=== PATIENT | female | born 1970 | race African-American/Black ===

== ENCOUNTER 2017-05-13 19:23 | Observation (INO) | payer SELFPAY ==
[2017-05-13 20:04] LABS: #Basophils 0.1 thou/uL (0.0-0.2); #Eosinphils 0.1 thou/uL (0.0-0.7); #Lymphocytes 1.9 thou/uL (1.20-3.40); #Monocytes 0.4 thou/uL (0.11-0.59); %Basophils 0.9 % (0.0-1.0); %Eosinophils 1.6 % (0.0-10.0); %Lymphocytes 29.6 % (21.0-51.0); %Monocytes 6.2 % (0.0-10.0); %Neutrophils 61.7 % (42.0-75.0); Hemoglobin 6.6 g/dL (12.0-16.0); Mean Corpuscular HGB CONC 27.9 g/dL (32.0-36.0); Mean Corpuscular Hemoglobin 19.4 pg (27.0-31.0); Mean Corpuscular Volume 69.6 fl (81.0-99.0); Mean Platelet Volume 11.7 fL (7.4-10.4); Platelet Count 256 thou/uL (130-400); Red Blood Cell (RBC) Count 3.38 mill/uL (4.20-5.40); White Blood Cell (WBC) Count 6.5 thou/uL (4.8-10.8)
[2017-05-13 20:20] LABS: Anisocytosis MODERATE=16-30 cells (100X) (0-5/hpf); Hypochromia SLIGHT = 6-15 cells (100X) (0-5/hpf); Large Platelets SLIGHT; MDiff Complete? YES; Microcytosis MODERATE=15-30 cells (100X) (0-5/hpf); Ovalocytes SLIGHT = 2-5 cells (100X) (0-1/hpf); PLT Morphology Comment Appears Adequate; Polychromasia SLIGHT = 2-3 cells (100X) (0-2/hpf); Target Cells SLIGHT = 2-5 cells (100X) (0-1/hpf)
[2017-05-13 20:24] LABS: ALT (SGPT) 11 U/L (8-55); AST (SGOT) 16 U/L (5-34); Albumin 3.6 g/dL (3.5-5.0); Alkaline Phosphatase 80 U/L (40-150); Anion Gap 15 mmol/L (10-20); BUN (Urea Nitrogen) 12 mg/dL (7.0-18.7); Bilirubin, Total Less than 0.2 mg/dL (0.2-1.2); Calc. Creatinine Clearance 0 mL/min (70-130); Calcium 9.1 mg/dL (7.8-10.44); Carbon Dioxide 21 mmol/L (22-29); Chloride 106 mmol/L (98-107); Estimated GFR-MDRD 62; Glucose 117 mg/dL (70-105); Potassium 3.8 mmol/L (3.5-5.1); Protein, Total 7.6 g/dL (6.0-8.3); Sodium 138 mmol/L (136-145)
[2017-05-13 20:48] LABS: Bilirubin Negative (Negative); Blood, Urine Large (Negative); Clarity CLEAR (Clear); Glucose, Urine (Dipstick) Negative (Negative); Leukocyte Small (Negative); Nitrite Negative (Negative); Protein, Urine (Dipstick) Negative (Neg-Trace); Specific Gravity, Urine 1.016 (1.002-1.036); Urobilinogen 0.2 mg/dL (0.2-1.0); pH, Urine 6.5 (5.0-9.0)
[2017-05-13 20:49] LABS: Bacteria/HPF None Seen HPF (None Seen); Hyaline Casts/LPF 0-3 HYALINE CAST LPF (0-3 Hyaline); Pregnancy Test - Urine (BHCG) Negative (Negative); Pregu Control Background? CLEAR/WHITE (CLR/WHITE); Pregu Control Bar Appear? YES (CONTROL BAR); RBC/HPF GREATER THAN 50-TNTC HPF (0-3); Specific Gravity 1.016 (1.002-1.036); Squamous Epithelial 0-3 HPF (0-3)
[2017-05-13] MEDS ORDERED: Ondansetron HCl/PF 4 MG/2 ML Vial IVP PRN (22:48)
[2017-05-13] MEDS ORDERED: Ondansetron ODT 4 MG TAB SL PRN (22:48)
[2017-05-13] MEDS ORDERED: Acetaminophen 325 MG TAB PO PRN ×2 (22:48→23:11)
[2017-05-13 23:07] LABS: Iron 13 ug/dL (50-170); Iron Binding Capacity, Total 424 mcg/dL (265-497)
[2017-05-13] MEDS ORDERED: diphenhydrAMINE 50 MG/ML VIAL IVP SCH (23:11)
[2017-05-13] MEDS ORDERED: Ondansetron ODT 4 MG TAB PO PRN (23:11)
[2017-05-13 23:30] VITALS: BMI 39.1
--- NOTE | 2017-05-14 03:30 | HP-2 ---
CODE STATUS: FULL. PRIMARY CARE PHYSICIAN: Wilfredo gomez. ATTENDING: Humble Galicia M.D. RESIDENT: Chandra Stauffer MD CHIEF COMPLAINT: Weakness and dizziness. HISTORY OF PRESENT ILLNESS: A 47-year-old female, who presents with a 2 week history of feeling dizz y and lightheaded. She states she went to [facility] roughly one month ago and was found to have hemoglobin of 6. At that time, she was advised to seek emergency medical care, but denied fu rther treatment at that time. States she has been taking [id number] iron tablets for this. Ov er the last couple weeks, she has noticed that she can walk as far and she cannot tolerate walking up stairs any longer. She denies any GI bleeding or recent illness. She does state that she has had lo ngstanding heavy menstrual cycles, where she uses roughly 4 pads per day and they can last as long as 2 weeks at the time. She has no other complaints at this time. PAST MEDICAL HISTORY: Anemia and depression. PAST SURGICAL HISTORY: Tubal ligation. ALLERGIES: No known drug allergies. MEDICATIONS: BuSpar 10 mg t.i.d., Zoloft 100 mg, and iron tablet. FAMILY HISTORY: Noncontributory. SOCIAL HISTORY: She is a current everyday smoking when she is able to. She denies any alcohol use a nd she has a previous cocaine substance abuse problem that last use in 2017. The patient is currentl y at [facility] for polysubstance abuse. REVIEW OF SYSTEMS: A 12-point review of systems was otherwise negative unless listed in the HPI. PHYSICAL EXAMINATION: VITAL SIGNS: Blood pressure was 126/75, pulse was 84, respirations 20, temperature max 98.1, pulse o x 100% on room air. Current weight is 95 kilos. GENERAL: Alert and oriented x4, appropriate, interactive. EYES: PERRLA. She does have pale conjunctivae. ENT: Tympanic membranes pearly fitch without bulging or erythema. Nasal mucosa and oropharynx within normal limits. She does have paleness to her sublingual area. NECK: Supple, no lymphadenopathy, no thyromegaly. CARDIOVASCULAR: Regular rate and rhythm. She has a flow murmur present on exam. No radial and peda l pulses are equal bilaterally. RESPIRATORY: Normal effort, no retractions. Clear to auscultation bilaterally. SKIN: Warm, dry. ABDOMEN: Soft, nontender to palpation. Bowel sounds present x4. No masses or distention. EXTREMITIES: No clubbing, cyanosis. She does have pitting edema on her shins, but it does not prese nt further distally down around her ankles. MUSCULOSKELETAL: Structure, tone, strength, and range of motion within normal limits. NEUROLOGIC: No focal neurologic deficits. Sensation within normal limits. Cranial nerves II throug h XII was grossly intact. GCS is 15. PSYCHIATRIC: Appropriate. LABORATORY DATA: White blood cell count 6.5, platelet count 256, hemoglobin 6.6, hematocrit 23.5, MC V of 69.6%, neutrophils 61.7. Sodium 138, potassium 3.8, chloride 106, bicarbonate 21, BUN 12, creat inine 0.97, glucose was 117, calcium 9.1, total protein 7.6, albumin 3.6, bilirubin was 0.2, AST was 16, ALT was 11, alkaline phosphatase was 80. Beta hCG was negative. She was A positive blood type. Her urinalysis showed a small amount of leukocyte esterase, too numerous to count red blood cells, a nd 4-6 white blood cells. ASSESSMENT AND PLAN: A 47-year-old female: 1. Symptomatic anemia secondary to dysfunctional uterine bleeding and iron deficiency anemia. We العلي ve iron studies pending. We will give her iron supplementation as well as transfuse 1 unit of blood to help her symptoms. We will trend her CBC. We will consider getting an endometrial biopsy and ord er a transvaginal ultrasound tomorrow to further evaluate if she needs further workup for her dysfunc tional uterine bleeding. 2. Lower extremity swelling. I am going to check her TSH and prolactin level to determine if she do es have a thyroid etiology to her anemia. 3. Depression. We will continue her home meds. DISPOSITION LENGTH OF HOSPITAL STAY: Will be observation and 1. Symptomatic medications will be provided. History and physical exam as well as management has been discussed with Dr. Galicia.
[2017-05-14 04:35] LABS: #Eosinphils 0.2 thou/uL (0.0-0.7); #Lymphocytes 2.2 thou/uL (1.20-3.40); #Monocytes 0.5 thou/uL (0.11-0.59); #Neutrophils 3.3 thou/uL (1.40-6.50); %Basophils 0.5 % (0.0-1.0); %Eosinophils 2.7 % (0.0-10.0); %Lymphocytes 35.8 % (21.0-51.0); %Monocytes 8.4 % (0.0-10.0); %Neutrophils 52.5 % (42.0-75.0); Hemoglobin 7.1 g/dL (12.0-16.0); Mean Corpuscular HGB CONC 29.3 g/dL (32.0-36.0); Mean Corpuscular Hemoglobin 20.8 pg (27.0-31.0); Mean Corpuscular Volume 71.1 fl (81.0-99.0); Mean Platelet Volume 11.6 fL (7.4-10.4); Platelet Count 237 thou/uL (130-400); RBC Distribution Width 18.4 % (11.5-14.5); Red Blood Cell (RBC) Count 3.39 mill/uL (4.20-5.40); White Blood Cell (WBC) Count 6.2 thou/uL (4.8-10.8)
--- NOTE | 2017-05-14 05:55 | PDOC.FM ---
- Subjective Subjective: Patient reports she is feeling better after blood transfusion but continues to feel very fatigued. Not having any dizziness at the time. No acute events overnight. - Objective MAR Reviewed: Yes Vital Signs & Weight: Vital Signs (12 hours) Temp Pulse Resp BP Pulse Ox 05/14/17 02:30 98.4 F 80 14 103/54 L 97 05/13/17 23:20 98.6 F 86 18 Weight Weight 97.023 kg I&O: 05/12/17 05/13/17 05/14/17 06:59 06:59 06:59 Intake Total 550 Balance 550 Result Diagrams: 05/14/17 03:54 05/13/17 19:48 <Bisi Louis - Last Filed: 05/14/17 09:18> - Objective Vital Signs & Weight: Vital Signs (12 hours) Temp Pulse Pulse Resp BP BP Pulse Ox 05/14/17 10:15 98.1 F 85 28 H 108/52 L 05/14/17 10:12 98.1 F 86 28 H 108/52 L 97 05/14/17 09:59 98.3 F 83 26 H 116/58 L 98 05/14/17 09:57 98.3 F 85 26 H 116/58 L 05/14/17 08:00 98.1 F 85 20 05/14/17 07:15 98.1 F 85 20 117/59 L 97 05/14/17 02:30 98.4 F 80 14 103/54 L 97 05/13/17 23:20 98.6 F 86 18 Weight Weight 97.023 kg I&O: 05/13/17 05/14/17 05/15/17 06:59 06:59 06:59 Intake Total 550 0 Balance 550 0 Result Diagrams: 05/14/17 03:54 05/13/17 19:48 <Joseph Maharaj - Last Filed: 05/14/17 10:45> Phys Exam - Physical Examination Constitutional: NAD HEENT: PERRLA, moist MMs Neck: no nodes, no JVD Respiratory: no wheezing, no rales, clear to auscultation bilateral Cardiovascular: RRR, no significant murmur Gastrointestinal: soft, non-tender trace edema b/l LE Neurological: moves all 4 limbs Psychiatric: A&O x 3 <Bisi Louis - Last Filed: 05/14/17 09:18> Dx/Plan (1) Iron deficiency anemia Code(s): D50.9 - IRON DEFICIENCY ANEMIA, UNSPECIFIED Status: Acute (2) Lower extremity edema Code(s): R60.0 - LOCALIZED EDEMA Status: Acute (3) Depression Code(s): F32.9 - MAJOR DEPRESSIVE DISORDER, SINGLE EPISODE, UNSPECIFIED Status : Acute - Plan Plan: Symptomatic Anemia 2/2 Fe deficiency Anemia - r/o GI source with FOBT, likely 2/2 menhorrhagia - obtain transvaginal u/s to evaluate for endometrial thickening and possible leimyoma - s/p transfusion of 1 unit - H/H 6.6--> 7.1, will repeat H/H in 4 hrs and order 1 more unit to be held - Fe 325mg BID and bowel regimen - Consider Fe transfusion Hypotension - s/p transfusion - patient asymptomatic - continue to monitor Lower Extremity Swelling - chronic in nature, no murmur, symmetrically enlarged, non tender, no erythema - TSH wnl - likely venous insufficiency, improved overnight with elevation Depression - continue home Buspar and Zoloft <Bisi Louis - Last Filed: 05/14/17 09:18> Attending Addendum - Attending Addendum I personally evaluated the patient and discussed the management with Dr. Louis. I agree with the History, Examination, Assessment and Plan documented above with any addition or exceptions noted below. Pt still symptomatic from her anemia this morning so we will transfuse and additional unit and give her an iron infusion. Vaginal u/s showed fibroids and thickened endometrial stripe so will need an outpatient biopsy. If feeling better this afternoon and H/H improved plan to d/c home. <Joseph Maharaj - Last Filed: 05/14/17 10:45>
[2017-05-14] MEDS ORDERED: Metamucil PACK PO SCH (09:00)
[2017-05-14] MEDS ORDERED: Docusate 100 MG CAP PO SCH (09:00)
[2017-05-14] MEDS: Ferrous Sulfate 325 MG TAB PO SCH ×2 (09:04→17:14)
[2017-05-14] MEDS: busPIRone HCl 10 MG TAB PO SCH ×2 (09:04→17:14)
--- NOTE | 2017-05-14 09:24 | ULT ---
PELVIC ULTRASOUND: DATE: 05/14/17. HISTORY: Heavy vaginal bleeding. FINDINGS: Multiple transabdominal and endovaginal sonographic images of the pelvis are obtained. The uterus is enlarged measuring 13.4 cm x 6.9 cm x 7.4 cm. The uterus is heterogeneous in appearanc e with multiple hypoechoic masses visualized within the uterus, the largest measuring approximately 3 .2 cm. The endometrial stripe is thickened measuring 2.1 cm, and there is decreased echogenicity with to-and -fro motion within the endometrial canal likely related to hemorrhage. The ovaries and bilateral fallopian tubes are not visualized bilaterally. There is a trace amount of free fluid in the pelvis. No adnexal mass is visualized. IMPRESSION: 1. Enlarged fibroid uterus. The endometrial canal is thickened with decreased echogenic material wi thin the endometrial canal which demonstrates to-and-fro motion on real-time imaging and likely relat ed to hemorrhage within the endometrial canal. 2. Nonvisualization of bilateral ovaries. POS: MARISELA
[2017-05-14 16:41] VITALS: BP 123/60; TEMP 97.6
[2017-05-14 18:18] LABS: Hemoglobin 8.5 g/dL (12.0-16.0)
[2017-05-19 07:28] LABS: Hemoglobin A 98.4 % (96.4-98.8); Hemoglobin A2 1.6 % (1.8-3.2); Hemoglobin F 0 % (0.0-2.0); Interpretation Note: (.)
== END 2017-05-14 19:30 | disposition home or self-care (01) ==
LOC: ERS 19:23 → 2SW 23:08
PROVIDERS: ADMIT Family Medicine; ATTEND Family Medicine
DX: D50.9 Iron deficiency anemia, unspecified (principal); N93.8 Other specified abnormal uterine and vaginal bleeding; R60.0 Localized edema; F32.9 Major depressive disorder, single episode, unspecified; F19.10 Other psychoactive substance abuse, uncomplicated; F14.10 Cocaine abuse, uncomplicated; F17.200 Nicotine dependence, unspecified, uncomplicated; Z79.899 Other long term (current) drug therapy
CPT/HCPCS: 36415; 36430; 76856; 80053; 81003; 81015; 81025; 82728; 83021; 83540; 83550; 84146; 84443; 85025; 85730; 86850; 86900; 86901; 96372; 99406; G0378; J1200; J1750; P9016